=== PATIENT | male | born 1945 | race Two or more races ===

== ENCOUNTER → 2020-01-13 | Outpatient (CLI) | payer SELFPAY ==
--- NOTE | 2020-01-13 17:08 | RAD ---
EXAM: THORACIC SPINE 3V, CHEST PA LATERAL INDICATION: Reason: RIB PAIN. THORACIC SPINE PAIN. / Spl. Instructions: / History: . TECHNIQUE: PA and lateral views COMPARISON: None FINDINGS: The heart size is normal. The great vessels show tortuosity of the thoracic aorta. There is no hilar or mediastinal mass. The lungs are clear. There is no pleural effusion or pneumothorax. There are no significant osseous abnormalities. IMPRESSION: No active cardiopulmonary disease. T-spine 3 views INDICATION: Rib pain and thoracic back pain. COMPARISON: Chest x-ray of the same day FINDINGS: 3 views of the thoracic spine show anatomic alignment with no fracture or aggressive appearing osseous lesions. Multilevel thoracic spinal degenerative spondylosis is present. Soft tissues reveal no additional unexpected findings. IMPRESSION: Degenerative changes of the thoracic spine. No acute or aggressive appearing osseous lesions and no malalignment. Electronically signed by: Nicki Subramanian MD (01/13/2020 5:05 PM) [id number]
== END ==
LOC: RAD 14:35
PROVIDERS: ATTEND Family Medicine
DX: M47.814 Spondylosis without myelopathy or radiculopathy, thoracic region (principal); R07.82 Intercostal pain
CPT/HCPCS: 71046; 72072